=== PATIENT | male | born 1970 | race Caucasian/White ===

== ENCOUNTER → 2017-08-30 08:47 | Outpatient (CLI) | payer BC, SELFPAY ==
--- NOTE | 2017-08-30 08:53 | VDLE_ITS ---
Reason For Study: chronic venous insufficiency, suerficial thrombophlebitis RIGHT LEFT CFV is compressible, spontaneous, phasic, CFV is compressible, spontaneous, phasic, competent and demonstrates normal competent, and demonstrates normal augmentation. augmentation. FV is compressible, spontaneous, phasic, FV is compressible, spontaneous, phasic, competent and demonstrates normal competent and demonstrates normal augmentation. augmentation. POP V is compressible, spontaneous, phasic, POP V is compressible, spontaneous, phasic, competent and demonstrates normal competent and demonstrates normal augmentation. augmentation. T/P Trunk is compressible. T/P Trunk is compressible. PTV is compressible. PTV is compressible. RT PerV is compressible. LT PerV is compressible. S-F Junction is incompetent for greater S-F Junction is incompetent for greater than .5 seconds. than .5 seconds. GSV is incompetent throughout for greater GSV is incompetent throughout for greater than .5 seconds. GSV measures .640 x .736 cm than .5 seconds. GSV measures .683 x .728 cm ASV in the groin/prox thigh is incompetent SSV is competent. for greater than .5 seconds. ASV Short segment of the GSV in the proximal measures .872 x .936 cm. thigh is partially compressible. SSV is incompetent for greater than .5 Varicose veins in the thigh and calf are seconds. SSV measures .428 x .422 cm. dilated and noncompressible. Procedure Exam performed in department. The exam was diagnostic. A preliminary report was called and/or faxed to Dr. Ibrahim. Interpretation Summary Deep veins of the lower extremities are bilaterally patent and compressible segmentally. There is no evidence of deep vein thrombosis on either side. Valvular competence appears intact within the proximal deep venous systems bilaterally. Sapheno-femoral junctions are bilaterally incompetent . Segmental valvular incompetence is noted within the greater saphenous veins bilaterally. The right small saphenous vein is patent and incompetent. The left small saphenous vein is patent and competent. The right anterior accessory saphenous vein is incompetent. Acute superficial thrombophlebitis is noted in a short segment of the left greater saphenous vein in the proximal thigh, and involving superficial varicosities in the left thigh and calf. Ordering Physician: Nils Ibrahim Performed By: Sherif Guzmán RVT
== END ==
PROVIDERS: Family Provider Family Medicine; PCP Family Medicine; Visit Provider Surgery
DX: I87.2 Venous insufficiency (chronic) (peripheral) (principal); M79.606 Pain in leg, unspecified; I83.10 Varicose veins of unspecified lower extremity with inflammation; I80.02 Phlebitis and thrombophlebitis of superficial vessels of left lower extremity
CPT/HCPCS: 93970

== ENCOUNTER → 2017-10-12 08:33 | Outpatient (CLI) | payer BC, SELFPAY ==
--- NOTE | 2017-10-12 08:33 | DT_ITS ---
This patient was seen during an EMR downtime October 10, 2017 - October 17, 2017. This patient may have a combination of paper and electronic documentation or all paper documentation. All documentation is viewable within the e-chart portion of [facility] for each patient visit.
--- NOTE | 2017-10-12 11:03 | VDLE_ITS ---
Reason For Study: HX superficial thrombophlebitis RIGHT LEFT CFV is compressible, spontaneous, phasic, GSV is normal. competent and demonstrates normal CFV is compressible, spontaneous, phasic, augmentation. competent, and demonstrates normal Procedure augmentation. Exam performed in department. FV is compressible, spontaneous, phasic, The exam was diagnostic. competent and demonstrates normal augmentation. POP V is compressible, spontaneous, phasic, competent and demonstrates normal augmentation. T/P Trunk is compressible. PTV is compressible. LT PerV is compressible. Thrombus filled varicosities noted in the left inner thigh area. Interpretation Summary Deep veins of the left lower extremity are patent and compressible segmentally. There is no evidence of left lower extremity deep vein thrombosis. Valvular competence appears intact within the proximal deep venous system on the left . The left greater saphenous vein appears patent and compressible segmentally. Acute superficial thrombophlebitis is noted involving superficial varicosities in the left medial thigh. Ordering Physician: Nils Ibrahim Referring Physician: Efrain Trinh Performed By: Violeta Barnett, RDCS, RVT
== END ==
PROVIDERS: Family Provider Family Medicine; PCP Family Medicine; Visit Provider Surgery
DX: I82.813 Embolism and thrombosis of superficial veins of lower extremities, bilateral (principal); I87.2 Venous insufficiency (chronic) (peripheral); I83.10 Varicose veins of unspecified lower extremity with inflammation
CPT/HCPCS: 93971

== ENCOUNTER → 2018-02-13 09:54 | Outpatient (CLI) | payer BC, SELFPAY ==
--- NOTE | 2018-02-13 09:57 | VDLE_ITS ---
Reason For Study: superficial thrombophlebitis RIGHT LEFT FV is compressible, spontaneous, phasic, FV is compressible, spontaneous, phasic, competent and demonstrates normal competent and demonstrates normal augmentation. augmentation. POP V is compressible, spontaneous, phasic, T/P Trunk is compressible. competent and demonstrates normal PTV is compressible. augmentation. LT PerV is compressible. T/P Trunk is compressible. CFV and POP V are compressible, spontaneous, PTV is compressible. phasic, shows reflux > 1.0 seconds. RT PerV is compressible. CFV compressible, spontaneous, phasic, shows SFJ is incompetent. reflux > 1.0 seconds. GSV above the knee is incompetent > 0.5 SFJ is incompetent. seconds with max diameter 0.65 x 0.87 cm. GSV is incompetent above the knee for > 0.5 GSV below the knee appears competent. seconds with max diameter 0.32 x 0.46 cm. SSV is incompetent > 0.5 seconds with max GSV is competent below the knee. diameter 0.29 x 0.32 cm. ASV @ SFJ is incompetent > 0.5 seconds with a max diameter 2.23 x 1.88 cm. SSV is incompetent > 0.5 seconds with max diamter 0.32 x 0.33 cm. Procedure Exam performed in department. The study was technically difficult. The exam was diagnostic. A preliminary report was called and/or faxed to Dr. Ibrahim. Interpretation Summary Deep veins of the lower extremities are bilaterally patent and compressible segmentally. There is no evidence of deep vein thrombosis on either side. Valvular incompetence is noted in the right common femoral vein, and the left common femoral and popliteal veins. The greater saphenous veins appear bilaterally patent and compressible segmentally. Sapheno-femoral junctions are bilaterally incompetent . The right greater saphenous vein appears incompetent above the knee. The right greater saphenous vein appears competent below the knee. The left greater saphenous vein appears incompetent above the knee. The left greater saphenous vein appears competent below the knee. Small saphenous veins are patent and incompetent bilaterally. The right accessory saphenous vein is incompetent. Ordering Physician: Nils Ibrahim Referring Physician: Efrain Trinh Performed By: Violeta Barnett RDCS, RVT
== END ==
PROVIDERS: Family Provider Family Medicine; PCP Family Medicine; Referring Provider Surgery; Visit Provider Surgery
DX: I87.2 Venous insufficiency (chronic) (peripheral) (principal); I80.02 Phlebitis and thrombophlebitis of superficial vessels of left lower extremity; I83.10 Varicose veins of unspecified lower extremity with inflammation
CPT/HCPCS: 93970